=== PATIENT | female | born 1995 | race Caucasian/White ===

== ENCOUNTER 2016-09-03 18:27 | Emergency (ER) | payer OTHER ==
[2016-09-03 19:12] LABS: microscopic required? NO
[2016-09-03 20:12] LABS: urine erythrocyte NEGATIVE (NEGATIVE)
[2016-09-03 22:56] VITALS: BP 121/82
== END 2016-09-03 22:56 | disposition home or self-care (01) ==
LOC: ED 18:27
DX: R10.84 Generalized abdominal pain (principal); S39.012A Strain of muscle, fascia and tendon of lower back, initial encounter; X58.XXXA Exposure to other specified factors, initial encounter; Y93.89 Activity, other specified; Y92.89 Other specified places as the place of occurrence of the external cause; Y99.8 Other external cause status
CPT/HCPCS: J1885; Q0162

== ENCOUNTER 2016-10-31 10:47 | Emergency (ER) | payer OTHER ==
[~2016-10-31] VITALS: Ht 157.5 cm; Wt 84.4 kg
[2016-10-31 13:19] VITALS: BP 125/81
== END 2016-10-31 13:19 | disposition home or self-care (01) ==
LOC: ED 10:47
DX: S91.201A Unspecified open wound of right great toe with damage to nail, initial encounter (principal); W22.09XA Striking against other stationary object, initial encounter; Y93.89 Activity, other specified; Y92.89 Other specified places as the place of occurrence of the external cause; Y99.8 Other external cause status
CPT/HCPCS: J2001